=== PATIENT | male | born 1945 | race Caucasian/White ===

== ENCOUNTER 2016-06-10 15:21 | Outpatient (CLI) | payer MEDICARE, OTHER ==
[2016-06-10 16:00] LABS: BASOPHILS % 0.3 (0.0-1.5); EOSINOPHILS % 4.3 % (0.0-6.8); LYMPHOCYTES # 0.9 # k/uL (0.6-4.0); MEAN CORPUSCULAR HEMOGLOBIN 31.8 pg (28.0-34.0); MONOCYTES # 0.5 # k/uL (0.0-0.9); MONOCYTES % 7.9 % (0.0-11.0); NEUTROPHILS # 4.8 # k/uL (1.4-7.7)
[2016-06-10 16:20] LABS: eGFR (African) > 60; eGFR (Non-African) > 60
== END 2016-06-10 15:22 ==
LOC: LAB 15:21
PROVIDERS: ATTEND Family Medicine
DX: Z51.81 Encounter for therapeutic drug level monitoring (principal); E03.9 Hypothyroidism, unspecified; Z79.899 Other long term (current) drug therapy
CPT/HCPCS: 36415; 80053; 84443; 85025

== ENCOUNTER 2016-06-20 19:11 | Inpatient (IN) | payer MEDICARE, OTHER ==
[2016-06-20] MEDS ORDERED: IPRATROPIUM/ALBUTEROL SULFATE 3 ML AMPUL.NEB NEB ONE (19:40)
[2016-06-20] MEDS ORDERED: 0.9 % SODIUM CHLORIDE 1,000 ML IV ONE ×2 (19:54→22:09)
[2016-06-20] MEDS ORDERED: BUDESONIDE 0.5MG/2ML AMPUL.NEB NEB ONE (19:54)
[2016-06-20] MEDS ORDERED: 0.9 % SODIUM CHLORIDE 1,000 ML IV SCH (20:00)
[2016-06-20] MEDS: BUDESONIDE 0.5MG/2ML AMPUL.NEB NEB SCH (20:00)
[2016-06-20 20:15] LABS: MEAN CORPUSCULAR HEMOGLOBIN 31.3 pg (28.0-34.0)
[2016-06-20 20:26] LABS: eGFR (African) > 60; eGFR (Non-African) > 60
[2016-06-20] MEDS ORDERED: cefTRIAXone SODIUM ADVANTAGE 1 GM in NORMAL SALINE ADD-VANTAGE 50 ML IV ONE (21:12)
[2016-06-20] MEDS ORDERED: cefTRIAXone SODIUM 1 GM VIAL ONE (22:02)
[2016-06-20] MEDS ORDERED: 0.9 % SODIUM CHLORIDE 50 ML IV ONE (22:03)
[2016-06-20] MEDS: 0.9 % SODIUM CHLORIDE 1,000 ML IV SCH (22:15)
[2016-06-20] MEDS ORDERED: 0.9 % SODIUM CHLORIDE 250 ML IV SCH (23:37)
--- NOTE | 2016-06-21 00:03 | ED Physician Documentation ---
Upper Respiratory Symptoms - HISTORIAN Historian: patient - HPI Stated Complaint: cough, cogestion Chief Complaint: Cough/ Upper Respiratory Additional Information: turned yellow sputum today Onset: days ago (7) Duration: sudden-Onset Context: denies: recent foreign travel, insect bite(s), tick(s), recent chemotherapy, multiple patients Severity: moderate Associated Symptoms: fever, productive cough Worsened by Deep Breath: No Further Comments: no - ROS CONST/EYES: denies: weakness, eye redness, eye itching CVS/RESP: other (productive cough) LYMPH: denies: leg swelling, rash, swollen glands, ankle swelling GI/: other (dysphagia secondary to radition tx) NEURO/PSYCH: denies: fainting, dizziness, confusion, anxiety, depression MS/SKIN: denies: joint pain, muscle aches, rash - PAST HX Lung Disease: none PE Risk Factors: cancer Other History: cancer chemo, cancer radiation tx, other (hypothyroidism, hyperlipidemia, ortho issues) Surgeries/Procedures: other (ortho) Immunizations: referred to PCP Allergies/Adverse Reactions: Allergies Allergy/AdvReac Type Severity Reaction Status Date / Time iodine Allergy Verified 06/20/16 19:30 Home Medications: Ambulatory Orders Medication Instructions Recorded Cefuroxime Axetil [Cefuroxime] 250 mg PO BID 06/20/16 Glycopyrrolate [Robinul] 1 mg PO BID 06/20/16 Metoclopramide HCl 5 mg PO D 06/20/16 Omeprazole [Prilosec] 40 mg PO D 06/20/16 - SOCIAL HX Smoking History: non-smoker Alcohol Use: none Drug Use: none - FAMILY HX Family History: no significant history - VITAL SIGNS Vital Signs: Vital Signs Temp Pulse Resp BP Pulse Ox 98.7 F 89 20 88/58 93 06/20/16 19:12 06/20/16 23:15 06/20/16 23:15 06/20/16 23:15 06/20/16 23:15 - REVIEWED ASSESSMENTS Nursing Assessment Reviewed: Yes Vitals Reviewed: Yes Progress - Results/Orders Results/Orders: cxr, blood cultures, ua, pt, ptt, inr, cmp, cbc ordered - Progress Progress: pt. given 1250 NS bolus and 100 cc/hr, 1 gram Rocephin ivpb, Duoneb and Pulmicort 0.5 mg nebulizer treatments, O2 at 2 liters nc in er Critical Care Note - Critical Care Note Total Time (mins): 0 ED Results Lab/Radiology - Lab Results Lab Results: Lab Results 06/20/16 06/20/16 06/20/16 20:02 20:02 20:02 WBC 14.80 K/ul H K/ul (4.00-12.00) RBC 4.46 M/ul M/ul (3.90-5.20) Hgb 14.0 g/dL g/dL (12.0-18.0) Hct 41.3 % % (37.0-53.0) MCV 92.5 fl fl (80.0-100.0) MCH 31.3 pg pg (28.0-34.0) MCHC 33.9 g/dL g/dL (30.0-36.0) RDW 13.4 % % (11.3-14.3) Plt Count 283 K/mm3 K/mm3 (130-400) PT 11.1 Seconds Seconds (9.7-11.5) INR 1.1 (0.9-1.1) APTT 23.6 Seconds L Seconds (24.5-32.8) Sodium 135 mmol/L L mmol/L (136-145) Potassium 3.9 mmol/L mmol/L (3.5-5.0) Chloride 92 mmol/L L mmol/L (98-110) Carbon Dioxide 37 mmol/L H mmol/L (20-32) BUN 19 mg/dL mg/dL (10-26) Creatinine 1.0 mg/dL mg/dL (0.4-1.5) Estimated Creat Clear 75 Est GFR ( Amer) > 60 (60 - ) Est GFR (Non-Af Amer) > 60 (60 - ) Glucose 117 mg/dL H mg/dL (70-99) Calcium 9.7 mg/dL mg/dL (8.5-10.5) Total Bilirubin 0.2 mg/dL mg/dL (0.2-1.2) AST 22 U/L U/L (0-41) ALT 25 U/L U/L (0-45) Alkaline Phosphatase 80 U/L U/L (46-116) Total Protein 7.2 g/dL g/dL (6.0-8.5) Albumin 4.4 g/dL g/dL (3.0-5.5) - Radiology Radiology Impressions: cxr shows blunting of left costophrenic angle - Orders Orders: ED Orders Category Date Time Status Place Saline Lock/IV Now Care 06/20/16 19:40 Active CHEST 1 VIEW [RAD] Routine Exams 06/20/16 Taken BLOOD CULTURE Routine Lab 06/20/16 21:12 Received CBC/PLATELET/DIFF Routine Lab 06/20/16 20:02 Completed CMP Routine Lab 06/20/16 20:02 Completed PT-INR Routine Lab 06/20/16 20:02 Completed PTT Routine Lab 06/20/16 20:02 Completed URINALYSIS Routine Lab 06/20/16 Ordered 0.9 % Sodium Chloride [Normal Saline] 1,000 ml Med 06/20/16 20:00 Discontinued IV .Q1H 0.9 % Sodium Chloride [Sodium Chloride] 50 ml Med 06/20/16 22:03 Discontinued IV .STK-MED Budesonide [Pulmicort] Med 06/20/16 21:00 Ordered 0.5 mg NEB BID Ipratropium/Albuterol Sulfate [Duoneb] Med 06/20/16 19:40 Discontinued 3 ml NEB NOW ONE cefTRIAXone SODIUM ADVANTAGE [Rocephin Advantage] 1 gm Med 06/20/16 21:12 Discontinued Normal Saline Add-[place] [Sodium Chloride] 50 ml IV NOW cefTRIAXone SODIUM [Rocephin] Med 06/20/16 22:02 Discontinued 1 gm .ROUTE .STK-MED ONE Oxygen Daily Oxygen 06/20/16 19:45 Ordered Transfer Routine Transfer 06/20/16 Ordered Upper Respiratory Symptoms - EXAM General Appearance: alert, moderate distress EENT: eyes nml inspection, nml ENT inspection, lids & conjunct. nml, PERRL, ear nml, nose nml Neck: normal inspection, thyroid normal, supple Respiratory: no resp. distress, no pain on inspiration, speaks full sentences, wheezes (rxp), rales (insp. rales bilateral bases) Abdomen: non-tender, no organomegaly, nml bowel sounds, no distention CVS: reg rate & rhythm, heart sounds normal Skin: color nml, no rash, warm,dry Extremities: non-tender, normal range of motion, no evidence of injury, no edema Neuro/Psych: oriented x3, neuro intact, mood/affect nml Discharge Clincal Impression: Pneumonia Qualifiers: Pneumonia type: due to unspecified organism Laterality: left Lung location: lower lobe of lung Qualified Code(s): J18.9 - Pneumonia, unspecified organism Home Medications: Ambulatory Orders Cefuroxime Axetil [Cefuroxime] 250 mg PO BID 06/20/16 Glycopyrrolate [Robinul] 1 mg PO BID 06/20/16 Metoclopramide HCl 5 mg PO D 06/20/16 Omeprazole [Prilosec] 40 mg PO D 06/20/16 Comments: Case discussed with Dr. Olivo who accepts pt for admission. Condition: Stable Disposition: HOME, SELF-CARE Decision to Admit: NO Decision Time: 00:00
[2016-06-21 00:26] VITALS: BMI 24.0
--- NOTE | 2016-06-21 00:34 | Diagnostic Imaging Report ---
[facility] [address] [facility] [address] [place], [place]. [address] ~ ~ ~ ~ Report Submission Date: Jun 20, 2016 8:03:08 PM WELDING TEACHER Patient ~ Study Name: KAREN NARAYANAN ~ Date: Jun 20, 2016 7:51:49 PM WELDING TEACHER ~ Modality Type: CR Gender: M ~ Description: CHEST : 45 ~ Institution: [facility] Physician: BESSIE LESLIE ~ ~ ~ ~ Chest AP portable at 1951 hours of June 20, 2016 . Clinical history: Cough and dyspnea Normal heart shadow. Atherosclerotic thoracic aorta. Clear lungs without definite evidence of acute infiltrates or pleural effusion. Normal bony thorax Impression: No active pulmonary pathology ~ Electronically signed on Jun 20, 2016 8:03:08 PM WELDING TEACHER by: Enio JEREZ
[2016-06-21 05:49] LABS: COLOR,URINE YELLOW (YELLOW)
[2016-06-21 05:50] LABS: APPEARANCE,URINE CLEAR (CLEAR); OCCULT BLOOD,URINE TRACE-INTACT (NEGATIVE); PH URINE 7.5 (5.0 - 8.0); UROBILINOGEN URINE 0.2 Eu (0.2-1.0)
[2016-06-21] MEDS ORDERED: 0.9 % SODIUM CHLORIDE 1,000 ML IV ONE (06:33)
[2016-06-21] MEDS: 0.9 % SODIUM CHLORIDE 1,000 ML IV SCH (06:36)
[2016-06-21] MEDS ORDERED: LEVOTHYROXINE SODIUM 100 MCG TABLET PO SCH ×2 (07:00→09:26)
[2016-06-21] MEDS ORDERED: LEVOTHYROXINE SODIUM 25 MCG TABLET PO SCH (07:00)
--- NOTE | 2016-06-21 08:13 | History and Physical Report ---
History of Present Illnes - History of Present Illness Reason for Visit: cough, hypoxia History of Present Illness: Patient is a 70-year-old white male who has a history of problems with right tonsilar fossa carcinoma. patient has been treated with chemotherapy. Patient does have swallowing difficulties related to the carcinoma. Patient has recurrent aspiration issues. Last episode of aspiration pneumonia was 10 months ago. Patient was placed on antibiotic therapy for bronchitis/pneumonia approximately 10 days ago. Patient did initially have some improvement but then started having increased cough with sputum production of some green to yellow phlegm. Patient denies any hemoptysis. On the day of admission patient' s cough became much worse, patient started having some wheezing and increasing dyspnea and shortness of breath. Patient's SaO2 dropped into the 80s. Patient was febrile with fever in the low 100s. Patient was subsequently seen in the emergency room. Patient was felt to be developing a pnuemonia and was admitted. . It was felt that the patient did have aa early infiltrate on CXR dispite radiology reading it as clear. - Past Medical History Cardiac: Hyperlipidemia, Other (peripheral vascular disease) Pulmonary: Other (recurrent aspiration) Heme/Onc: Other (right tonsilar carcinoma) Psych: Depression Musculoskeletal: Other (cervical foraminal stenosis) Endocrine: Hypothyroidism - Past Surgical History Past Surgical History: Hernia Repair, Other (radiation and chemotherapy for cancer, PEG placement) - Past Family History Father Family History: (cancer) Sister 1 Family History: CAD, DM - Past Social History Smoke: Quit Alcohol: None Drugs: None Lives: With Family Domestic Violence: Negative - Health Maintenance Health Maintenance: Cholesterol, Pneumococcal Vaccine Pneumonia Vaccine: Yes Resuscitation Status: Resusciation Status Resuscitation Status Full Code - Unable to Obtain History Unable to Obtain: Yes Review of Systems - Review of Systems Constitutional: Fever, Chills. negative: Sweats, Weakness Eyes: negative: pain, vision change ENT: Throat Pain. negative: Ear Pain, Ear Discharge, Nose Pain, Nose Discharge , Nose Congestion, Mouth Pain, Mouth Swelling Respiratory: Cough, Shortness of Breath, SOB with Excertion, Pleuritic Pain, Wheezing. negative: Hemoptysis Cardiovascular: Chest Pain. negative: Palpitations, Orthopnea, Paroxysmal Noc. Dyspnea, Light Headedness Gastrointestinal: negative: Nausea, Vomiting, Abdominal Pain, Diarrhea, Constipation, Melena, Hematochezia Genitourinary: negative: Dysuria, Frequency, Incontinence, Hematuria Musculoskeletal: Neck Pain Skin: negative: Rash, Lesions Neurological: negative: Weakness, Numbness, Incoordination, Change in Speech - Medications/Allergies Allergies/Adverse Reactions: Allergies Allergy/AdvReac Type Severity Reaction Status Date / Time iodine Allergy Verified 06/20/16 19:30 Home Medications: Home Medications Glycopyrrolate [Robinul] 1 mg PO BID 06/20/16 Metoclopramide HCl 5 mg PO D 06/20/16 Omeprazole [Prilosec] 40 mg PO D 06/20/16 Current Inpatient Medications: Current Inpatient Medications Budesonide (Pulmicort) 0.5 mg NEB BID [facility] Last Admin: 06/20/16 20:00 Dose: 0.5 mg Sodium Chloride (Normal Saline) 250 mls @ 1,000 mls/hr IV .Q1H [facility] Last Admin: 06/20/16 22:00 Dose: 1,000 mls/hr Sodium Chloride (Normal Saline) 1,000 mls @ 100 mls/hr IV .Q1H [facility] Last Admin: 06/21/16 06:36 Dose: 100 mls/hr Exam - Exam Vital Signs: Vital Signs (72 hours) 06/20/16 06/20/16 06/21/16 23:15 23:16 02:00 Temperature 100.5 F H Pulse Rate 84 Pulse Rate [ 89 92 H Pulse ox] Respiratory 20 20 Rate Blood Pressure 88/58 113/70 [Left Arm] O2 Sat by Pulse 93 91 L Oximetry 06/21/16 06/21/16 06/21/16 02:58 04:00 05:20 Temperature 99.1 F Pulse Rate 84 84 Pulse Rate [ Pulse ox] Respiratory 18 Rate Blood Pressure 109/68 [Left Arm] O2 Sat by Pulse 94 Oximetry 06/21/16 06:13 Temperature 99.6 F Pulse Rate Pulse Rate [ 86 Pulse ox] Respiratory 20 Rate Blood Pressure 113/61 [Left Arm] O2 Sat by Pulse 93 Oximetry General: Alert, Oriented to Person, Oriented to Place, Oriented to Time, Cooperative, Mild distress HEENT: Atraumatic, PERRLA, EOMI, Mouth Mucous membr. moist/Faxon, Nose Mucous membr. moist/Faxon, Dentition Normal, Hearing Grossly Normal Neck: Normal Range of Motion, Other Carotids: WNL Thyroid: WNL Lungs: Normal air movement, Speaks full Sentences, Wheezes, Rales (LLL), Rhonchi (LLL) Cardiovascular: Regular rate, Normal S1, Normal S2, No murmurs Abdomen: Normal bowel sounds, Soft, No tenderness, No hepatospenomegaly, No masses Integumentary: Normal, Faxon, Warm, Dry Extremities: No clubbing, No cyanosis, No edema, Normal pulses, No tenderness/ swelling Neurological: Normal gait, Normal speech, Strength Equal Bilat, Normal tone, Sensation intact, Cranial nerves 3-12 NL, Reflexes 2+ Psych/Mental Status: Mental status NL, Mood NL, Appropriate Affect, Intact Judgment Assessment/Plan - Assessment/Plan (1) Pneumonia Status: Acute Qualifiers: Pneumonia type: due to unspecified organism Laterality: left Lung location: lower lobe of lung Qualified Code(s): J18.1 - Lobar pneumonia, unspecified organism Assessment: patient will be started on Rocephin and azithromycin. Patient will be started on high flow nebulization treatments. Support with oxygen therapy as needed. (2) Hypothyroid Status: Acute Assessment: patient will be continued on home medications (3) PUD (peptic ulcer disease) Status: Acute Assessment: patient will be continued on home medication (4) Primary cancer of lingual tonsil Status: Chronic Assessment: stable VTE Assessment - RISK FACTOR SCORE VTE RISK FACTOR SCORES: AGE OVER 60 YEARS, ACUTE INFECTION OTHER THEN SEPSIS, ANTICIPATED BED CONFINEMENT OR IMMOBILIZATION > 24 HOURS - RISK VTE HIGH RISK: SCORE OF 3-4 (RISK PROXIMAL DVT 4-8%) PROPHYLAXIS NEEDED
[2016-06-21] MEDS ORDERED: LEVOTHYROXINE SODIUM 25 MCG TABLET PEG SCH (09:22)
[2016-06-21] MEDS ORDERED: ENOXAPARIN SODIUM 30 MG/0.3 ML DISP.SYRIN SQ ONE (09:59)
[2016-06-21] MEDS ORDERED: METOCLOPRAMIDE HCL 5 MG TABLET PEG SCH (10:00)
[2016-06-21] MEDS ORDERED: BUDESONIDE 0.5MG/2ML AMPUL.NEB NEB ONE ×2 (10:00→20:13)
[2016-06-21] MEDS ORDERED: AZITHROMYCIN 500 MG VIAL IV ONE (10:00)
[2016-06-21] MEDS ORDERED: 0.9 % SODIUM CHLORIDE 250 ML IV ONE (10:00)
[2016-06-21] MEDS ORDERED: 0.9 % SODIUM CHLORIDE 50 ML IV ONE (10:00)
[2016-06-21] MEDS ORDERED: cefTRIAXone SODIUM 1 GM VIAL ONE (10:00)
[2016-06-21] MEDS ORDERED: METOCLOPRAMIDE HCL 5 MG TABLET PO SCH ×2 (10:00)
[2016-06-21] MEDS: ENOXAPARIN SODIUM 30 MG/0.3 ML DISP.SYRIN SQ SCH (10:03)
[2016-06-21] MEDS: BUDESONIDE 0.5MG/2ML AMPUL.NEB NEB SCH ×2 (10:23→20:37)
[2016-06-21] MEDS: cefTRIAXone SODIUM 1 GM in 0.9 % SODIUM CHLORIDE 50 ML IV SCH (10:24)
[2016-06-21] MEDS: AZITHROMYCIN 500 MG in 0.9 % SODIUM CHLORIDE 250 ML IV SCH (10:30)
[2016-06-21] MEDS ORDERED: SALINE FLUSH 10 ML DISP.SYRIN IVF ONE (11:03)
[2016-06-21] MEDS: PATIENT OWN MED 1 EACH EACH PEG SCH ×3 (13:52→20:14)
[2016-06-21] MEDS ORDERED: PATIENT OWN MED 1 EACH EACH PEG SCH ×2 (17:08→17:30)
[2016-06-21] MEDS ORDERED: METOCLOPRAMIDE HCL 5 MG TABLET ONE (17:18)
[2016-06-22] MEDS ORDERED: ENOXAPARIN SODIUM 30 MG/0.3 ML DISP.SYRIN SQ ONE (04:54)
[2016-06-22] MEDS ORDERED: cefTRIAXone SODIUM 1 GM VIAL ONE (04:55)
[2016-06-22] MEDS ORDERED: BUDESONIDE 0.5MG/2ML AMPUL.NEB NEB ONE (04:55)
[2016-06-22] MEDS ORDERED: 0.9 % SODIUM CHLORIDE 250 ML IV ONE (04:55)
[2016-06-22] MEDS ORDERED: AZITHROMYCIN 500 MG VIAL IV ONE (04:55)
[2016-06-22] MEDS ORDERED: LEVOTHYROXINE SODIUM 25 MCG TABLET ONE (04:55)
[2016-06-22] MEDS ORDERED: SALINE FLUSH 10 ML DISP.SYRIN IVF ONE (04:55)
[2016-06-22] MEDS ORDERED: METOCLOPRAMIDE HCL 5 MG TABLET ONE (04:55)
[2016-06-22] MEDS ORDERED: PANTOPRAZOLE SODIUM 40 MG TABLET ONE (04:56)
[2016-06-22] MEDS ORDERED: 0.9 % SODIUM CHLORIDE 0 ML IV ONE (04:56)
[2016-06-22] MEDS ORDERED: LEVOTHYROXINE SODIUM 100 MCG TABLET PO ONE (04:56)
[2016-06-22] MEDS ORDERED: METOCLOPRAMIDE HCL 5 MG TABLET PEG SCH ×3 (07:00→17:00)
[2016-06-22] MEDS ORDERED: PANTOPRAZOLE SODIUM 40 MG TABLET PEG SCH (07:00)
[2016-06-22] MEDS ORDERED: PANTOPRAZOLE SODIUM 40 MG TABLET PO SCH (07:00)
[2016-06-22] MEDS ORDERED: PATIENT OWN MED 1 EACH EACH PEG SCH ×3 (07:00→14:00)
[2016-06-22] MEDS: BUDESONIDE 0.5MG/2ML AMPUL.NEB NEB SCH (09:00)
[2016-06-22] MEDS: PATIENT OWN MED 1 EACH EACH PEG SCH (09:01)
[2016-06-22] MEDS: ENOXAPARIN SODIUM 30 MG/0.3 ML DISP.SYRIN SQ SCH (09:01)
[2016-06-22] MEDS ORDERED: 0.9 % SODIUM CHLORIDE 50 ML IV ONE (09:24)
[2016-06-22] MEDS: cefTRIAXone SODIUM 1 GM in 0.9 % SODIUM CHLORIDE 50 ML IV SCH (09:30)
[2016-06-22] MEDS: AZITHROMYCIN 500 MG in 0.9 % SODIUM CHLORIDE 250 ML IV SCH (10:30)
[2016-06-22 10:31] LABS: BASOPHILS % 0.1 (0.0-1.5); LYMPHOCYTES # 0.6 # k/uL (0.6-4.0); MEAN CORPUSCULAR HEMOGLOBIN 30.8 pg (28.0-34.0); MONOCYTES # 0.3 # k/uL (0.0-0.9); MONOCYTES % 4.7 % (0.0-11.0); NEUTROPHILS # 5.8 # k/uL (1.4-7.7)
[2016-06-22 10:37] LABS: eGFR (African) > 60; eGFR (Non-African) > 60
--- NOTE | 2016-06-22 14:38 | Discharge Summary ---
Discharge Summary - Discharge Sumary History of Present Illness: Patient is a 70-year-old white male who has a history of problems with right tonsilar fossa carcinoma. patient has been treated with chemotherapy. Patient does have swallowing difficulties related to the carcinoma. Patient has recurrent aspiration issues. Last episode of aspiration pneumonia was 10 months ago. Patient was placed on antibiotic therapy for bronchitis/pneumonia approximately 10 days ago. Patient did initially have some improvement but then started having increased cough with sputum production of some green to yellow phlegm. Patient denies any hemoptysis. On the day of admission patient' s cough became much worse, patient started having some wheezing and increasing dyspnea and shortness of breath. Patient's SaO2 dropped into the 80s. Patient was febrile with fever in the low 100s. Patient was subsequently seen in the emergency room. Patient was felt to be developing a pnuemonia and was admitted. . It was felt that the patient did have aa early infiltrate on CXR dispite radiology reading it as clear. Condition at Discharge: Stable Home Medications: Ambulatory Orders Medication Instructions Recorded Glycopyrrolate [Robinul] 1 mg PO BID 06/20/16 Metoclopramide HCl 5 mg PO D 06/20/16 Omeprazole [Prilosec] 40 mg PO D 06/20/16 Albuterol Sulfate [Proair HFA] 2 inh IH Q4 PRN #1 hfa.aer.ad 06/22/16 Azithromycin [Zithromax] 250 mg PO DAILY #4 tablet 06/22/16 Levofloxacin [Levaquin] 500 mg PO D #8 tablet 06/22/16 Consultations this Visit: None Procedures this Visit: None Allergies/Adverse Reactions: Allergies Allergy/AdvReac Type Severity Reaction Status Date / Time iodine Allergy Verified 06/20/16 19:30 Discharge Summary: patient was admitted with pneumonia. Patient was started on IV antibiotic therapy of Rocephin and azithromycin. Patient did well. Patient was started on high flow nebulization treatments and supplemental oxygen. By the next day. Patient was breathing much easier. Patient was requested to be transferred back to care home. Patient was advised to stay for further IV antibiotic therapy. Patient refused and was transferred back to [place]. - Final Diagnosis (1) Pneumonia Problems: improved with current Therapy Nebulization Treatment. Patient Will Be Continued on Antibiotic Therapy after Discharge. Patient Will Be Continued with High Flow Nebulization Treatment at the Care Home. (2) Hypothyroid Problems: stable on on home meds (3) PUD (peptic ulcer disease) Problems: stable (4) Primary cancer of lingual tonsil Problems: stable, treated
[2016-06-22 15:25] VITALS: BP 138/51
--- NOTE | 2016-06-22 17:00 | Diagnostic Imaging Report ---
[facility] [address] [facility].[address] [address] ~ ~ ~ ~ Report Submission Date: Jun 22, 2016 1:44:58 PM ASSOCIATE PROFESSOR OF KINESIOLOGY Patient ~ Study Name: KAREN NARAYANAN ~ Date: Jun 22, 2016 1:06:36 PM ASSOCIATE PROFESSOR OF KINESIOLOGY ~ Modality Type: CR Gender: M ~ Description: CHEST : 45 ~ Institution: [facility] Physician: HARISH MURRAY MD ~ ~ ~ ~ Chest 2 views History: Dyspnea and history of laryngeal carcinoma Findings: Mild bibasilar reticular opacity and a small right upper lobe reticulonodular opacity are observed. There is no confluent air space infiltrate or pleural effusion. Heart size is normal. Right upper lobe lesion has developed since the exam performed 2 days ago. Basilar findings are unchanged. Impression: 1. Mild bibasilar interstitial infiltrate versus bronchitis without change. 2. New right upper lobe reticulonodular opacity, likely inflammatory. Recommend radiographic followup. ~ Electronically signed on Jun 22, 2016 1:44:58 PM ASSOCIATE PROFESSOR OF KINESIOLOGY by: Qamar JEREZ
== END 2016-06-22 16:32 | disposition home or self-care (01) | DRG 195 ==
LOC: ED 19:11 → SOUTH 22:56
PROVIDERS: ADMIT Family Medicine; ATTEND Family Medicine
DX: J18.9 Pneumonia, unspecified organism (principal)
CPT/HCPCS: 71010; 71020; 80048; 80053; 81002; 85025; 85610; 85730; 87040; 87070; 94640; 99284; J0456; J0696; J1650; J7030; J7050; J7626; 99222; 99232; 99238; S1016

== ENCOUNTER 2016-10-14 11:57 | Outpatient (CLI) | payer MEDICARE, OTHER ==
[2016-10-14 12:48] LABS: BASOPHILS % 0.2 (0.0-1.5); EOSINOPHILS % 0.8 % (0.0-6.8); MEAN CORPUSCULAR HEMOGLOBIN 31.7 pg (28.0-34.0); MEAN CORPUSCULAR VOLUME 93.4 fl (80.0-100.0); MONOCYTES % 4.9 % (0.0-11.0); NEUTROPHILS # 5.9 # k/uL (1.4-7.7)
[2016-10-14 13:13] LABS: eGFR (African) > 60; eGFR (Non-African) > 60
--- NOTE | 2016-10-14 15:23 | Diagnostic Imaging Report ---
[facility] [place] [facility] [address] [facility].[address] [address] Report Submission Date: October 14, 2016 12:31:45 PM CDT Patient Study Name: KAREN NARAYANAN Date: October 14, 2016 12:10:06 PM CDT Modality Type: CT\SR Gender: M Description: CT BRAIN W/O CONTRAST : 45 Institution: [facility] [place] [facility] Physician ASA MOMO - OP Head CT without contrast CLINICAL HISTORY: Fall. Right frontal contusion. Right upper extremity hemiparesis. TECHNIQUE: CT examination of the brain is performed in contiguous axial slices without the use of contrast. Sagittal and coronal reconstructions are performed by the technologist. FINDINGS: The 4th ventricle lies in a normal midline position. The ventricles and sulci are mildly prominent consistent with the patient's age. There is no hypodense or hyperdense mass or intracranial hemorrhage. Intracranial atherosclerosis is demonstrated. Right frontal scalp hematoma is demonstrated. Underlying bony structures are intact. IMPRESSION: Right frontal scalp injury. Intracranial atherosclerosis. No acute intracranial changes. Electronically signed on October 14, 2016 12:31:45 PM CDT by: Tab JEREZ
--- NOTE | 2016-10-14 15:36 | Diagnostic Imaging Report ---
MOMO BRAY [facility] [place] [facility] [address] [facility] [address] [place], [place]. [address] Report Submission Date: October 14, 2016 3:29:22 PM CDT Patient Study Name: KAREN NARAYANAN Date: October 14, 2016 12:24:06 PM CDT Modality Type: CR Gender: M Description: CHEST : 45 Institution: [facility] [place] [facility] Physician: MOMO BRAY 2 views of the chest History: FALL YESTERDAY. COUGH AND DYSPNEA ON EXERTION Findings: Comparison: June 22, 2016 The heart is normal in size. Aorta is tortuous Prominent pulmonary winter. Apical pleural thickening. Again noted are opacities in the bilateral lower lobes, most prominent on the left. No pleural effusion/ pneumothorax Previously described right upper lobe nodular opacity not as prominent on the current study Degenerative changes of thoracic spine Impression: Bilateral lower lobe interstitial infiltrates and/or atelectasis, worse on the left. Chronic basilar predominant interstitial lung changes No pleural effusion. Prominent pulmonary hilum, may be secondary to pulmonary congestion / lymphadenopathy Previously described right upper lobe reticular opacity not as prominently seen on the current examination. Biapical pleural thickening Electronically signed on October 14, 2016 3:29:22 PM CDT by: Keena JEREZ
== END 2016-10-14 12:00 ==
LOC: RT 11:57
PROVIDERS: ATTEND Family Medicine
DX: G81.91 Hemiplegia, unspecified affecting right dominant side (principal); S00.83XA Contusion of other part of head, initial encounter; R06.09 Other forms of dyspnea; R55 Syncope and collapse
CPT/HCPCS: 36415; 70450; 71020; 80053; 85025; 93225

== ENCOUNTER 2016-10-21 08:45 | Outpatient (CLI) | payer MEDICARE, OTHER ==
--- NOTE | 2016-10-21 16:29 | Diagnostic Imaging Report ---
[facility] [address] [facility].[address] [address] Report Submission Date: October 21, 2016 4:20:04 PM CDT Patient Study Name: KAREN NARAYANAN Date: October 21, 2016 8:57:20 AM CDT Modality Type: CR Gender: M Description: CHEST : 45 Institution: [facility] Physician: ASA MOMO - OP Chest 2 views History: Cough and wheezing Findings: Mild left midlung and bibasilar reticular opacity is unchanged since June 22, 2016. Heart size is normal. No pleural effusions are observed. Lungs are mildly hyperinflated. Nipple shadows are noted. Impression: Stable left midlung and bibasilar interstitial infiltrate versus bronchitis with mild hyperinflation. Electronically signed on October 21, 2016 4:20:04 PM CDT by: Qamar JEREZ
== END 2016-10-21 08:46 ==
LOC: RAD 08:45
PROVIDERS: ATTEND Family Medicine
DX: R06.02 Shortness of breath (principal)
CPT/HCPCS: 71020

== ENCOUNTER 2016-12-13 09:14 | Outpatient (CLI) | payer MEDICARE, OTHER | END 2016-12-13 09:15 | LOC: LAB 09:14 | PROVIDERS: ATTEND Family Medicine | DX: E78.00 Pure hypercholesterolemia, unspecified (principal) | CPT/HCPCS: 36415; 80061 ==

== ENCOUNTER 2017-02-13 14:45 | Outpatient (CLI) | payer MEDICARE, OTHER | END 2017-02-13 14:46 | LOC: LAB 14:45 | PROVIDERS: ATTEND Family Medicine | DX: E78.00 Pure hypercholesterolemia, unspecified (principal) | CPT/HCPCS: 80061 ==

== ENCOUNTER 2017-05-21 12:55 | Inpatient (IN) | payer MEDICARE, OTHER ==
[2017-05-21 15:31] VITALS: BMI 20.9
--- NOTE | 2017-05-21 16:11 | History and Physical Report ---
History of Present Illnes - History of Present Illness Reason for Visit: GAit disturbance, dressing changes History of Present Illness: 71yo white male who was admitted to [facility] for sepsis with shock After he developed some severe abdominal pain. 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 Two days after his primary surgery patient underwent another abdominal laparotomy for partial closure of his abdominal wound/incision. Patient was also found to have some hypernatremia, hypokalemia and hypercloremia. Patient was also found to have a pneumonia. This was felt to be related to recurrent aspiration problems that the patient has. Patient sputum culture did grow out pseudomonas. Patient was initially placed on vancomycin and then subsequently on Levaquin.Patient was treated with vancomycin. Patient has two more days to finish out his course of antibiotic therapy. Patient was found to have a DVT in the femoral vein, with no PE. Patient was found to have a patent foramen ovale. There is some question if the patient had a emboli that travel through the defect and cause the ischemic mesenteric bowel through embolization. IVC filter placed. Patient has been placed on anticoagulation therapy of Lovenox. Patient denies it is had any previous DVTs. Patient stated he does seem to be doing fairly well at this time. Patient believes that is breathing has return back to normal. Patient does have a well-functioning ileostomy. Patient pain related to his abdominal surgery does seem to be improving at this time. 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 Patient does have a PEG tube in place and get all this medications and nutritional and hydration through it. - Past Medical History Cardiac: Hyperlipidemia, Other (peripheral vascular disease) Pulmonary: Other (recurrent aspiration, Right femoral DVT) Heme/Onc: Other (right tonsilar carcinoma) Psych: Depression Musculoskeletal: Other (cervical foraminal stenosis) Endocrine: Hypothyroidism - Past Surgical History Past Surgical History: Hernia Repair, Other (partial colectomy), Other ( radiation and chemotherapy for cancer, PEG placement) - Past Family History Mother Family History: Father Family History: Cancer (brain tumor), (cancer) Sister 1 Family History: CAD, DM - Past Social History Smoke: Quit (use to chew tobacco) Alcohol: None Drugs: None Lives: With Family Domestic Violence: Negative - Health Maintenance Health Maintenance: Cholesterol, Pneumococcal Vaccine (13 & 23) Influenza Vaccine: Current for this Influenza Season Pneumonia Vaccine: Yes Resuscitation Status: DNR - Unable to Obtain History Unable to Obtain: No Review of Systems - Review of Systems Constitutional: Weakness. negative: Fever, Chills Eyes: negative: pain ENT: negative: Ear Pain, Ear Discharge, Nose Pain, Nose Discharge, Nose Congestion, Mouth Pain Respiratory: Cough, Shortness of Breath, Sputum, Wheezing. negative: Hemoptysis , Pleuritic Pain Cardiovascular: negative: Chest Pain, Palpitations, Orthopnea, Light Headedness Gastrointestinal: Abdominal Pain. negative: Nausea, Vomiting, Diarrhea, Constipation, Melena, Hematochezia Genitourinary: negative: Dysuria, Frequency Musculoskeletal: Back Pain Skin: negative: Rash Neurological: Weakness. negative: Numbness, Incoordination, Change in Speech - Medications/Allergies Allergies/Adverse Reactions: Allergies Allergy/AdvReac Type Severity Reaction Status Date / Time iodine Allergy Verified 06/20/16 19:30 Exam - Exam Vital Signs: Vital Signs (72 hours) 05/21/17 14:05 Temperature 98.6 F Respiratory 18 Rate Blood Pressure 138/51 [Left Arm] O2 Sat by Pulse 92 Oximetry General: Alert, Oriented to Person, Oriented to Place, Oriented to Time, Cooperative, Other HEENT: Atraumatic, PERRLA, Dentition Normal, Hearing Grossly Normal. No: Mouth Mucous membr. moist/[place] (dry) Neck: No: Stridor, Lymphadenopathy Carotids: WNL Thyroid: WNL Lungs: Normal air movement, Speaks full Sentences, Rhonchi (throughout). No: Wheezes, Rales Cardiovascular: Regular rate, Normal S1, Normal S2, No murmurs Abdomen: Normal bowel sounds, Soft, No hepatospenomegaly, No masses. No: Distended Integumentary: Normal, [place], Warm, Dry, Other (incisional wound 13x2cm, appears to be healing well) Extremities: No clubbing, No cyanosis, No edema, Normal pulses Neurological: Normal gait, Normal speech, Strength Equal Bilat, Normal tone, Sensation intact, Cranial nerves 3-12 NL, Reflexes 2+, Generalized Weakness Psych/Mental Status: Mental status NL, Mood NL, Intact Judgment Assessment/Plan - Assessment/Plan (1) GERD without esophagitis Status: Chronic Current Visit: Yes (2) Ischemic bowel disease Status: Acute Current Visit: Yes Assessment: [place]o to possibly related to embolisim from DVT (3) DVT (deep venous thrombosis) Status: Acute Current Visit: Yes Qualifiers: DVT location: lower extremity Affected thrombotic vein of extremity: femoral Chronicity: acute Laterality: right Qualified Code(s): I82.411 - Acute embolism and thrombosis of right femoral vein Assessment: on Lovenox due to question about GI absorbtion of oral anticoagulants according to family (4) Patent foramen ovale Status: Chronic Current Visit: Yes (5) Hypothyroid Status: Chronic Current Visit: No Comment: continue home med (6) Recurrent aspiration pneumonia Status: Acute Current Visit: No Assessment: finish Levquin ( 2days) (7) Primary cancer of lingual tonsil Status: Chronic Current Visit: No Assessment: has undergone chemo and radiation therapy VTE Assessment - RISK FACTOR SCORE VTE RISK FACTOR SCORES: AGE OVER 60 YEARS, ANTICIPATED BED CONFINEMENT OR IMMOBILIZATION > 24 HOURS - RISK VTE MODERATE RISK: SCORE OF 2 (RISK PROXIMAL DVT 2-4%) PROPHYAXIS NEEDED (on anticoagluation theraoy related to DVT)
[2017-05-21] MEDS ORDERED: ACETAMINOPHEN ORAL SOLUTION 325 MG/10.15 ML CUP PEG PRN (17:59)
[2017-05-21] MEDS: FAMOTIDINE 20 MG TABLET PEG SCH (18:09)
[2017-05-21] MEDS: LEVOTHYROXINE SODIUM 25 MCG TABLET PO SCH (18:10)
[2017-05-21] MEDS: LEVOTHYROXINE SODIUM 100 MCG TABLET PO SCH (18:10)
--- NOTE | 2017-05-21 18:20 | Diagnostic Imaging Report ---
[facility] [address] [facility] [address] [address] Report Submission Date: May 21, 2017 6:19:04 PM AGRICULTURAL PURCHASING AGENT Patient Study Name: KAREN NARAYANAN Date: May 21, 2017 6:02:49 PM AGRICULTURAL PURCHASING AGENT Modality Type: CR Gender: M Description: CHEST : 45 Institution: [facility] Physician: [facility] SURG PA and lateral chest Clinical history: COUGH, F/U PNEUMONIA Findings: Examination of the chest in PA and lateral views with comparison to examination October 21, 2016 demonstrates bilateral infiltrates worse in the upper lung zones. Cardiovascular and mediastinal silhouettes are stable. There is left pleural thickening laterally. There is widening of the superior mediastinum suggesting adenopathy. Cardiac silhouette is stable. Impression: 1. Bilateral infiltrates. 2. Pleural thickening in the upper chest on the left laterally that is new. 3. Widening of mediastinum. Rule out mediastinal adenopathy. 4. Recommend followup to resolution to rule out the possibility of underlying malignancy. Electronically signed on May 21, 2017 6:19:04 PM AGRICULTURAL PURCHASING AGENT by: Tab JEREZ
[2017-05-21] MEDS ORDERED: ENOXAPARIN SODIUM 80 MG/0.8 ML DISP.SYRIN SQ ONE (20:02)
[2017-05-21] MEDS: ENOXAPARIN SODIUM 100 MG/ML DISP.SYRIN SQ SCH (20:06)
[2017-05-21] MEDS: ALBUTEROL SULFATE 2.5 MG/3 ML AMPUL.NEB NEB SCH (20:41)
[2017-05-21] MEDS ORDERED: SALINE FLUSH 10 ML DISP.SYRIN IVF ONE (20:52)
[2017-05-21] MEDS: ACETYLCYSTEINE 200MG/ML 30ML PO SCH (20:56)
[2017-05-21] MEDS: oxyCODONE HCL 5 MG TABLET PEG PRN (23:31)
[2017-05-22] MEDS ORDERED: ENOXAPARIN SODIUM 80 MG/0.8 ML DISP.SYRIN SQ ONE (05:49)
[2017-05-22] MEDS: LEVOTHYROXINE SODIUM 100 MCG TABLET PO SCH (06:19)
[2017-05-22] MEDS: FAMOTIDINE 20 MG TABLET PEG SCH (06:19)
[2017-05-22] MEDS: LEVOTHYROXINE SODIUM 25 MCG TABLET PO SCH (06:19)
[2017-05-22] MEDS: [UNRECOGNIZED DRUG - OTHER] PEG SCH ×10 (07:00→19:44)
[2017-05-22 07:14] LABS: BASOPHILS % 0.4 (0.0-1.5); EOSINOPHILS % 3.2 % (0.0-6.8); MEAN CORPUSCULAR HEMOGLOBIN 29.3 pg (28.0-34.0); MONOCYTES % 3.6 % (0.0-11.0); NEUTROPHILS # 12.6 # k/uL (1.4-7.7)
[2017-05-22 07:24] LABS: eGFR (African) > 60; eGFR (Non-African) > 60
[2017-05-22] MEDS ORDERED: LEVOFLOXACIN 500 MG TABLET PO SCH (09:00)
[2017-05-22] MEDS: ALBUTEROL SULFATE 2.5 MG/3 ML AMPUL.NEB NEB SCH ×4 (09:54→19:45)
[2017-05-22] MEDS: ENOXAPARIN SODIUM 100 MG/ML DISP.SYRIN SQ SCH ×2 (09:54→19:45)
[2017-05-22] MEDS: ACETYLCYSTEINE 200MG/ML 30ML PO SCH (09:54)
[2017-05-22] MEDS: WATER PEG SCH ×5 (11:00→19:45)
[2017-05-22] MEDS: ACETYLCYSTEINE 200MG/ML 30ML PEG SCH ×3 (12:55→19:45)
[2017-05-22] MEDS: Non-Formulary 1 EACH PEG SCH ×2 (15:25→15:26)
[2017-05-22] MEDS: PANTOPRAZOLE SODIUM 40 MG TABLET PO SCH (19:33)
[2017-05-22] MEDS: oxyCODONE HCL 5 MG TABLET PEG PRN (23:21)
[2017-05-23] MEDS ORDERED: LEVOFLOXACIN 500 MG TABLET ONE (00:06)
[2017-05-23] MEDS: LEVOTHYROXINE SODIUM 25 MCG TABLET PEG SCH (06:07)
[2017-05-23] MEDS: LEVOTHYROXINE SODIUM 100 MCG TABLET PEG SCH (06:07)
[2017-05-23] MEDS: FAMOTIDINE 20 MG TABLET PEG SCH (06:08)
[2017-05-23] MEDS: WATER PEG SCH ×7 (06:08→18:00)
[2017-05-23] MEDS: PANTOPRAZOLE SODIUM 40 MG TABLET PO SCH (06:08)
[2017-05-23] MEDS: [UNRECOGNIZED DRUG - OTHER] PEG SCH ×7 (06:08→18:00)
[2017-05-23 08:06] LABS: MEAN CORPUSCULAR VOLUME 89.7 fl (80.0-100.0)
[2017-05-23] MEDS: ACETYLCYSTEINE 200MG/ML 30ML PEG SCH ×4 (08:49→21:20)
[2017-05-23] MEDS: ENOXAPARIN SODIUM 100 MG/ML DISP.SYRIN SQ SCH ×2 (08:49→21:19)
[2017-05-23] MEDS ORDERED: LEVOFLOXACIN 500 MG TABLET PEG SCH (09:00)
[2017-05-23] MEDS: ALBUTEROL SULFATE 2.5 MG/3 ML AMPUL.NEB NEB SCH ×4 (09:02→23:13)
[2017-05-23] MEDS ORDERED: NYSTATIN POWDER BOTTLE TP PRN (15:54)
[2017-05-23] MEDS ORDERED: SODIUM CHLORIDE NASAL SPRAY NS PRN (16:48)
[2017-05-24] MEDS: LEVOTHYROXINE SODIUM 100 MCG TABLET PEG SCH (06:40)
[2017-05-24] MEDS: PANTOPRAZOLE SODIUM 40 MG TABLET PO SCH (06:40)
[2017-05-24] MEDS: FAMOTIDINE 20 MG TABLET PEG SCH (06:40)
[2017-05-24] MEDS: LEVOTHYROXINE SODIUM 25 MCG TABLET PEG SCH (06:41)
[2017-05-24] MEDS: [UNRECOGNIZED DRUG - OTHER] PEG SCH ×7 (06:41→17:59)
[2017-05-24] MEDS: WATER PEG SCH ×7 (06:42→18:00)
[2017-05-24] MEDS: ACETYLCYSTEINE 200MG/ML 30ML PEG SCH ×5 (08:26→20:08)
[2017-05-24] MEDS: ENOXAPARIN SODIUM 100 MG/ML DISP.SYRIN SQ SCH ×2 (08:28→20:00)
[2017-05-24] MEDS: ALBUTEROL SULFATE 2.5 MG/3 ML AMPUL.NEB NEB SCH ×4 (08:31→20:58)
[2017-05-24 10:47] LABS: MEAN CORPUSCULAR HEMOGLOBIN 29.3 pg (28.0-34.0); MEAN CORPUSCULAR VOLUME 89.2 fl (80.0-100.0)
[2017-05-24] MEDS ORDERED: ENOXAPARIN SODIUM 100 MG/ML DISP.SYRIN SQ ONE (19:59)
[2017-05-25] MEDS ORDERED: ENOXAPARIN SODIUM 80 MG/0.8 ML DISP.SYRIN SQ ONE ×2 (01:33→13:19)
[2017-05-25] MEDS: FAMOTIDINE 20 MG TABLET PEG SCH (05:49)
[2017-05-25] MEDS: PANTOPRAZOLE SODIUM 40 MG TABLET PO SCH (05:49)
[2017-05-25] MEDS: LEVOTHYROXINE SODIUM 100 MCG TABLET PEG SCH (05:49)
[2017-05-25] MEDS: LEVOTHYROXINE SODIUM 25 MCG TABLET PEG SCH (05:49)
[2017-05-25] MEDS: WATER PEG SCH ×8 (05:50→18:31)
[2017-05-25] MEDS: [UNRECOGNIZED DRUG - OTHER] PEG SCH ×8 (05:50→18:31)
[2017-05-25] MEDS: oxyCODONE HCL 5 MG TABLET PEG PRN (06:55)
[2017-05-25] MEDS: ENOXAPARIN SODIUM 100 MG/ML DISP.SYRIN SQ SCH ×2 (08:14→20:31)
[2017-05-25] MEDS: ALBUTEROL SULFATE 2.5 MG/3 ML AMPUL.NEB NEB SCH ×4 (08:45→20:30)
--- NOTE | 2017-05-25 09:13 | Inpatient Progress Note ---
Subjective - Required Recertification Statement I anticipate X number of days because-include discharge plan: 10 - Review of Systems Events since last encounter: Wiley looks better this morning. His hemoglobin was up yesterday. He is a little stronger. He is afebrile. He has no significant pain. His ostomy is working better. General: Malaise. Denies: Chills, Night Sweats HEENT: Denies: Head Aches, Visual Changes Pulmonary: Dyspnea, Cough Cardiovascular: Denies: Chest Pain Gastrointestinal: Denies: Nausea, Vomiting Genitourinary: Denies: Dysuria Musculoskeletal: Denies: Neck Pain, Shoulder Pain Neurological: Weakness. Denies: Change in Speech, Confusion Objective - Exam Vitals and I&O: Vital Signs Temp 98.3 F 05/24/17 19:32 Pulse 80 05/24/17 20:37 Resp 20 05/24/17 20:37 BP 102/58 05/24/17 19:32 Pulse Ox 97 05/24/17 19:32 Intake & Output 05/24/17 05/24/17 05/25/17 11:59 23:59 11:59 Intake Total 350 1525 150 Output Total 400 1003 750 Balance -50 522 -600 Intake: Oral 0 1525 Tube Feeding 350 150 Output: Urine 3 Stool 250 1000 750 Other 150 Other: Voiding Method Urinal Urinal General: Alert, Oriented to Person, Oriented to Place, Oriented to Time, Cooperative, Mild distress HEENT: Atraumatic, PERRLA, EOMI Neck: Supple, No JVD Lungs: Wheezes, Rhonchi Cardiovascular: Regular rate Abdomen: Normal bowel sounds, Soft, No tenderness (ostomy is functioning well.) Extremities: No clubbing, No cyanosis, No edema - Results Results: Laboratory Results WBC 7.80 K/ul (4.00-12.00) 05/24/17 10:25 RBC 3.03 M/ul (3.90-5.20) L 05/24/17 10:25 Hgb 8.9 g/dL (12.0-18.0) L 05/24/17 10:25 Hct 27.0 % (37.0-53.0) L 05/24/17 10:25 MCV 89.2 fl (80.0-100.0) 05/24/17 10:25 MCH 29.3 pg (28.0-34.0) 05/24/17 10:25 MCHC 32.8 g/dL (30.0-36.0) 05/24/17 10:25 RDW 15.3 % (11.3-14.3) H 05/24/17 10:25 Plt Count 452 K/mm3 (130-400) H 05/24/17 10:25 Neut % (Auto) 81.0 % (39.0-79.0) H 05/22/17 06:35 Lymph % (Auto) 10.9 % (16.0-50.0) L 05/22/17 06:35 [place] % (Auto) 3.6 % (0.0-11.0) 05/22/17 06:35 Eos % (Auto) 3.2 % (0.0-6.8) 05/22/17 06:35 Baso % (Auto) 0.4 (0.0-1.5) 05/22/17 06:35 Neut # (Auto) 12.6 # k/uL (1.4-7.7) H 05/22/17 06:35 Lymph # (Auto) 1.7 # k/uL (0.6-4.0) 05/22/17 06:35 [place] # (Auto) 0.6 # k/uL (0.0-0.9) 05/22/17 06:35 Eos # (Auto) 0.5 # k/uL (0.0-0.6) 05/22/17 06:35 Baso # (Auto) 0.1 # k/uL (0.0-0.5) 05/22/17 06:35 Reactive Lymphs % 0.9 % (0.0-5.0) 05/22/17 06:35 Reactive Lymphs # 0.1 # k/uL (0.0-0.8) 05/22/17 06:35 Sodium 132 mmol/L (136-145) L 05/22/17 06:35 Potassium 4.9 mmol/L (3.5-5.1) 05/22/17 06:35 Chloride 92 mmol/L (98-107) L 05/22/17 06:35 Carbon Dioxide 32 mmol/L (22-30) H 05/22/17 06:35 BUN 21 mg/dL (9-20) H 05/22/17 06:35 Creatinine 1.00 mg/dL (0.66-1.25) 05/22/17 06:35 Estimated Creat Clear 67 05/22/17 06:35 Est GFR ( Amer) > 60 (60-) 05/22/17 06:35 Est GFR (Non-Af Amer) > 60 (60-) 05/22/17 06:35 Glucose 107 mg/dL (74-106) H 05/22/17 06:35 Calcium 9.5 mg/dL (8.4-10.2) 05/22/17 06:35 Total Bilirubin < 0.1 mg/dL (0.2-1.3) L 05/22/17 06:35 AST 30 U/L (15-46) 05/22/17 06:35 ALT 55 U/L (13-69) 05/22/17 06:35 Alkaline Phosphatase 119 U/L (38-126) 05/22/17 06:35 Total Protein 7.5 g/dL (6.3-8.2) 05/22/17 06:35 Albumin 3.2 g/dL (3.5-5.0) L 05/22/17 06:35 Stool Guaiac Test Positive (NEGATIVE) H 05/22/17 08:50 Assessment/Plan - Assessment/Plan (1) DVT (deep venous thrombosis) Status: Acute Current Visit: Yes Qualifiers: DVT location: lower extremity Affected thrombotic vein of extremity: femoral Chronicity: acute Laterality: right Qualified Code(s): I82.411 - Acute embolism and thrombosis of right femoral vein Assessment: Currently on Lovenox for anticoagulation. Will likely need to go to Eliquis or other Factor Xa inhibitor retirement (2) Ischemic bowel disease Status: Acute Current Visit: Yes Assessment: S/P right hemicolectomy and ostomy placement (3) GERD without esophagitis Status: Chronic Current Visit: Yes Assessment: Continue PPI (4) Patent foramen ovale Status: Chronic Current Visit: Yes Assessment: Chronic (5) Primary cancer of lingual tonsil Status: Chronic Current Visit: No Assessment: Continue tube feeds
[2017-05-25] MEDS: ACETYLCYSTEINE 200MG/ML 30ML PEG SCH ×4 (09:43→20:31)
[2017-05-26] MEDS ORDERED: ENOXAPARIN SODIUM 80 MG/0.8 ML DISP.SYRIN SQ ONE ×2 (04:42→19:44)
[2017-05-26] MEDS: LEVOTHYROXINE SODIUM 25 MCG TABLET PEG SCH (05:37)
[2017-05-26] MEDS: PANTOPRAZOLE SODIUM 40 MG TABLET PO SCH (05:37)
[2017-05-26] MEDS: LEVOTHYROXINE SODIUM 100 MCG TABLET PEG SCH (05:37)
[2017-05-26] MEDS: FAMOTIDINE 20 MG TABLET PEG SCH (05:37)
[2017-05-26] MEDS: WATER PEG SCH ×7 (06:55→19:47)
[2017-05-26] MEDS: [UNRECOGNIZED DRUG - OTHER] PEG SCH ×7 (06:55→19:47)
[2017-05-26 07:06] LABS: MEAN CORPUSCULAR HEMOGLOBIN 29.2 pg (28.0-34.0); MEAN CORPUSCULAR VOLUME 89.9 fl (80.0-100.0)
[2017-05-26] MEDS: ALBUTEROL SULFATE 2.5 MG/3 ML AMPUL.NEB NEB SCH ×4 (09:10→21:18)
[2017-05-26] MEDS: ACETYLCYSTEINE 200MG/ML 30ML PEG SCH ×4 (09:24→19:44)
[2017-05-26] MEDS: ENOXAPARIN SODIUM 100 MG/ML DISP.SYRIN SQ SCH ×2 (09:25→19:44)
[2017-05-27] MEDS: oxyCODONE HCL 5 MG TABLET PEG PRN (01:27)
[2017-05-27] MEDS ORDERED: ENOXAPARIN SODIUM 80 MG/0.8 ML DISP.SYRIN SQ ONE ×2 (05:31→13:37)
[2017-05-27] MEDS: PANTOPRAZOLE SODIUM 40 MG TABLET PO SCH (05:59)
[2017-05-27] MEDS: FAMOTIDINE 20 MG TABLET PEG SCH (05:59)
[2017-05-27] MEDS: LEVOTHYROXINE SODIUM 100 MCG TABLET PEG SCH (05:59)
[2017-05-27] MEDS: LEVOTHYROXINE SODIUM 25 MCG TABLET PEG SCH (06:01)
[2017-05-27] MEDS: [UNRECOGNIZED DRUG - OTHER] PEG SCH ×7 (06:42→18:35)
[2017-05-27] MEDS: WATER PEG SCH ×7 (06:42→18:35)
[2017-05-27] MEDS: ACETYLCYSTEINE 200MG/ML 30ML PEG SCH ×4 (09:06→21:30)
[2017-05-27] MEDS: ENOXAPARIN SODIUM 100 MG/ML DISP.SYRIN SQ SCH (09:06)
[2017-05-27] MEDS: ALBUTEROL SULFATE 2.5 MG/3 ML AMPUL.NEB NEB SCH ×4 (10:37→21:05)
[2017-05-27] MEDS: ENOXAPARIN SODIUM 80 MG/0.8 ML DISP.SYRIN SQ SCH (20:19)
[2017-05-28] MEDS: PANTOPRAZOLE SODIUM 40 MG TABLET PO SCH (06:11)
[2017-05-28] MEDS: FAMOTIDINE 20 MG TABLET PEG SCH (06:11)
[2017-05-28] MEDS: LEVOTHYROXINE SODIUM 100 MCG TABLET PEG SCH (06:11)
[2017-05-28] MEDS: WATER PEG SCH ×7 (06:12→18:41)
[2017-05-28] MEDS: [UNRECOGNIZED DRUG - OTHER] PEG SCH ×7 (06:12→18:40)
[2017-05-28] MEDS: LEVOTHYROXINE SODIUM 25 MCG TABLET PEG SCH (06:12)
[2017-05-28] MEDS: ENOXAPARIN SODIUM 80 MG/0.8 ML DISP.SYRIN SQ SCH ×2 (07:45→20:32)
[2017-05-28] MEDS: ALBUTEROL SULFATE 2.5 MG/3 ML AMPUL.NEB NEB SCH ×4 (09:37→22:23)
[2017-05-28] MEDS: ACETYLCYSTEINE 200MG/ML 30ML PEG SCH ×4 (09:46→20:33)
[2017-05-28] MEDS: oxyCODONE HCL 5 MG TABLET PEG PRN (22:35)
[2017-05-29] MEDS: WATER PEG SCH ×7 (06:33→18:45)
[2017-05-29] MEDS: [UNRECOGNIZED DRUG - OTHER] PEG SCH ×7 (06:33→18:44)
[2017-05-29] MEDS: PANTOPRAZOLE SODIUM 40 MG TABLET PO SCH (06:33)
[2017-05-29] MEDS: FAMOTIDINE 20 MG TABLET PEG SCH (06:33)
[2017-05-29] MEDS: LEVOTHYROXINE SODIUM 25 MCG TABLET PEG SCH (06:34)
[2017-05-29] MEDS: LEVOTHYROXINE SODIUM 100 MCG TABLET PEG SCH (06:34)
[2017-05-29] MEDS: ACETYLCYSTEINE 200MG/ML 30ML PEG SCH ×4 (09:01→21:55)
[2017-05-29] MEDS: ENOXAPARIN SODIUM 80 MG/0.8 ML DISP.SYRIN SQ SCH ×2 (09:01→19:35)
[2017-05-29] MEDS: ALBUTEROL SULFATE 2.5 MG/3 ML AMPUL.NEB NEB SCH ×4 (09:25→21:55)
--- NOTE | 2017-05-29 16:26 | Diagnostic Imaging Report ---
[facility]G [facility] [address] [facility] [address] [address] Report Submission Date: May 29, 2017 4:15:16 PM CARPENTER'S HELPER Patient Study Name: KAREN NARAYANAN Date: May 29, 2017 3:51:58 PM CARPENTER'S HELPER Modality Type: CR Gender: M Description: CHEST : 45 Institution: [facility] Physician: [facility] Examination: PA and lateral chest. History: Evaluate lung ashley. Comparison exam: 21 May 2017 Findings: PA lateral chest demonstrate a prominent cardiac and mediastinal silhouette. Continued primarily biapical parenchymal infiltrates. Haziness at the left lung base. Biapical lucencies. Osseous structures have remained stable. Impression: Continued bilateral parenchymal infiltrates: not appreciably changed from prior study. Biapical lucencies may represent pneumothoraces. Consider obtaining CT chest to better evaluate. Discussed findings with nguyen nurse at 1615 hours on 29 May 2017 CDT Electronically signed on May 29, 2017 4:15:16 PM CARPENTER'S HELPER by: Cory JEREZ
[2017-05-29] MEDS ORDERED: SALINE FLUSH 10 ML DISP.SYRIN IVF ONE (20:10)
[2017-05-29] MEDS: CEFUROXIME AXETIL 250 MG TABLET PO SCH (22:53)
[2017-05-30] MEDS: FAMOTIDINE 20 MG TABLET PEG SCH (05:45)
[2017-05-30] MEDS: LEVOTHYROXINE SODIUM 100 MCG TABLET PEG SCH (05:45)
[2017-05-30] MEDS: PANTOPRAZOLE SODIUM 40 MG TABLET PO SCH (05:45)
[2017-05-30] MEDS: LEVOTHYROXINE SODIUM 25 MCG TABLET PEG SCH (05:46)
[2017-05-30] MEDS: [UNRECOGNIZED DRUG - OTHER] PEG SCH ×7 (09:29→19:56)
[2017-05-30] MEDS: WATER PEG SCH ×7 (09:29→19:56)
[2017-05-30] MEDS: ENOXAPARIN SODIUM 80 MG/0.8 ML DISP.SYRIN SQ SCH ×2 (10:00→19:57)
[2017-05-30] MEDS: CEFUROXIME AXETIL 250 MG TABLET PO SCH ×2 (10:01→19:57)
[2017-05-30] MEDS: ACETYLCYSTEINE 200MG/ML 30ML PEG SCH ×4 (10:01→19:56)
[2017-05-30] MEDS: ALBUTEROL SULFATE 2.5 MG/3 ML AMPUL.NEB NEB SCH ×4 (10:06→20:27)
[2017-05-30] MEDS: oxyCODONE HCL 5 MG TABLET PEG PRN (23:14)
[2017-05-31] MEDS: [UNRECOGNIZED DRUG - OTHER] PEG SCH ×7 (06:05→19:27)
[2017-05-31] MEDS: WATER PEG SCH ×7 (06:05→19:27)
[2017-05-31] MEDS: LEVOTHYROXINE SODIUM 100 MCG TABLET PEG SCH (06:08)
[2017-05-31] MEDS: FAMOTIDINE 20 MG TABLET PEG SCH (06:08)
[2017-05-31] MEDS: PANTOPRAZOLE SODIUM 40 MG TABLET PO SCH (06:08)
[2017-05-31] MEDS: LEVOTHYROXINE SODIUM 25 MCG TABLET PEG SCH (06:11)
[2017-05-31] MEDS: ENOXAPARIN SODIUM 80 MG/0.8 ML DISP.SYRIN SQ SCH ×2 (08:09→20:15)
[2017-05-31] MEDS: ACETYLCYSTEINE 200MG/ML 30ML PEG SCH ×4 (08:10→20:15)
[2017-05-31] MEDS: CEFUROXIME AXETIL 250 MG TABLET PO SCH ×2 (08:10→20:15)
[2017-05-31] MEDS: ALBUTEROL SULFATE 2.5 MG/3 ML AMPUL.NEB NEB SCH ×4 (08:39→20:16)
[2017-05-31] MEDS: oxyCODONE HCL 5 MG TABLET PEG PRN (20:43)
[2017-06-01] MEDS: FAMOTIDINE 20 MG TABLET PEG SCH (06:10)
[2017-06-01] MEDS: LEVOTHYROXINE SODIUM 100 MCG TABLET PEG SCH (06:10)
[2017-06-01] MEDS: PANTOPRAZOLE SODIUM 40 MG TABLET PO SCH (06:10)
[2017-06-01] MEDS: WATER PEG SCH ×7 (08:32→19:09)
[2017-06-01] MEDS: [UNRECOGNIZED DRUG - OTHER] PEG SCH ×6 (08:32→19:09)
[2017-06-01] MEDS: ENOXAPARIN SODIUM 80 MG/0.8 ML DISP.SYRIN SQ SCH ×2 (08:48→20:28)
[2017-06-01] MEDS: ACETYLCYSTEINE 200MG/ML 30ML PEG SCH ×4 (08:49→21:35)
[2017-06-01] MEDS: ALBUTEROL SULFATE 2.5 MG/3 ML AMPUL.NEB NEB SCH ×4 (09:10→21:28)
[2017-06-01] MEDS: CEFUROXIME AXETIL 250 MG TABLET PO SCH ×2 (11:27→20:29)
[2017-06-01] MEDS ORDERED: oxyCODONE HCL 5 MG TABLET ONE (18:06)
[2017-06-01] MEDS: oxyCODONE HCL 5 MG TABLET PEG PRN (18:37)
[2017-06-01] MEDS ORDERED: oxyCODONE HCL 5 MG TABLET PEG SCH (21:00)
[2017-06-02] MEDS: WATER PEG SCH ×7 (06:23→18:27)
[2017-06-02] MEDS: PANTOPRAZOLE SODIUM 40 MG TABLET PO SCH (06:23)
[2017-06-02] MEDS: LEVOTHYROXINE SODIUM 25 MCG TABLET PEG SCH (06:23)
[2017-06-02] MEDS: LEVOTHYROXINE SODIUM 100 MCG TABLET PEG SCH (06:23)
[2017-06-02] MEDS: FAMOTIDINE 20 MG TABLET PEG SCH (06:23)
[2017-06-02] MEDS: [UNRECOGNIZED DRUG - OTHER] PEG SCH ×7 (06:36→18:27)
[2017-06-02 07:27] LABS: MEAN CORPUSCULAR HEMOGLOBIN 30.2 pg (28.0-34.0); MEAN CORPUSCULAR VOLUME 90.8 fl (80.0-100.0)
[2017-06-02] MEDS: oxyCODONE HCL 5 MG TABLET PEG PRN ×2 (08:19→12:37)
[2017-06-02] MEDS: ACETYLCYSTEINE 200MG/ML 30ML PEG SCH ×4 (08:20→20:31)
[2017-06-02] MEDS: CEFUROXIME AXETIL 250 MG TABLET PO SCH ×2 (08:22→20:30)
[2017-06-02] MEDS: ENOXAPARIN SODIUM 80 MG/0.8 ML DISP.SYRIN SQ SCH (08:22)
--- NOTE | 2017-06-02 08:50 | Inpatient Progress Note ---
Subjective - Required Recertification Statement I anticipate X number of days because-include discharge plan: 7 - Review of Systems Events since last encounter: Wiley is more and more fatigued. He says that he hurts from his waist up when he is walking, and nursing state that he has had some problems with leg weakness. His hemoglobin has continued to go up, however his white count is slightly up. I have switched him from Lovenox SQ to PO Eliquis now as recommended by the team at . He is still very short of breath. General: Fatigue. Denies: Chills HEENT: Denies: Head Aches Pulmonary: Dyspnea, Cough Cardiovascular: Denies: Chest Pain, Palpitations, Orthopnea Gastrointestinal: Denies: Nausea, Vomiting Genitourinary: Denies: Dysuria Musculoskeletal: Back Pain. Denies: Neck Pain Neurological: Weakness. Denies: Change in Speech, Confusion Objective - Exam Vitals and I&O: Vital Signs Temp 98.7 F 06/01/17 20:49 Pulse 82 06/01/17 21:00 Resp 18 06/01/17 21:00 BP 121/78 06/01/17 20:49 Pulse Ox 97 06/01/17 20:49 Intake & Output 06/01/17 06/01/17 06/02/17 11:59 23:59 11:59 Intake Total 741 697 Balance 741 697 Intake: Tube Feeding 711 697 Other 30 Other: Voiding Method Urinal Urinal # Voids 3 2 # Bowel Movements 0 General: Alert, Oriented to Person, Oriented to Place, Mild distress HEENT: Atraumatic, PERRLA, EOMI, Other (mucous membranes are very dry) Neck: Supple, No JVD Lungs: Wheezes, Rhonchi, Decreased Air Movement Cardiovascular: Regular rate Abdomen: Normal bowel sounds, Soft, Vental Hernia (Ostomy is functioning well) Skin: Normal, [place] Neurological: Normal speech - Results Results: Laboratory Results WBC 12.30 K/ul (4.00-12.00) H 06/02/17 06:45 RBC 3.48 M/ul (3.90-5.20) L 06/02/17 06:45 Hgb 10.5 g/dL (12.0-18.0) L 06/02/17 06:45 Hct 31.6 % (37.0-53.0) L 06/02/17 06:45 MCV 90.8 fl (80.0-100.0) 06/02/17 06:45 MCH 30.2 pg (28.0-34.0) 06/02/17 06:45 MCHC 33.3 g/dL (30.0-36.0) 06/02/17 06:45 RDW 17.2 % (11.3-14.3) H 06/02/17 06:45 Plt Count 503 K/mm3 (130-400) H 06/02/17 06:45 Neut % (Auto) 81.0 % (39.0-79.0) H 05/22/17 06:35 Lymph % (Auto) 10.9 % (16.0-50.0) L 05/22/17 06:35 [place] % (Auto) 3.6 % (0.0-11.0) 05/22/17 06:35 Eos % (Auto) 3.2 % (0.0-6.8) 05/22/17 06:35 Baso % (Auto) 0.4 (0.0-1.5) 05/22/17 06:35 Neut # (Auto) 12.6 # k/uL (1.4-7.7) H 05/22/17 06:35 Lymph # (Auto) 1.7 # k/uL (0.6-4.0) 05/22/17 06:35 [place] # (Auto) 0.6 # k/uL (0.0-0.9) 05/22/17 06:35 Eos # (Auto) 0.5 # k/uL (0.0-0.6) 05/22/17 06:35 Baso # (Auto) 0.1 # k/uL (0.0-0.5) 05/22/17 06:35 Reactive Lymphs % 0.9 % (0.0-5.0) 05/22/17 06:35 Reactive Lymphs # 0.1 # k/uL (0.0-0.8) 05/22/17 06:35 Sodium 132 mmol/L (136-145) L 05/22/17 06:35 Potassium 4.9 mmol/L (3.5-5.1) 05/22/17 06:35 Chloride 92 mmol/L (98-107) L 05/22/17 06:35 Carbon Dioxide 32 mmol/L (22-30) H 05/22/17 06:35 BUN 21 mg/dL (9-20) H 05/22/17 06:35 Creatinine 1.00 mg/dL (0.66-1.25) 05/22/17 06:35 Estimated Creat Clear 67 05/22/17 06:35 Est GFR ( Amer) > 60 (60-) 05/22/17 06:35 Est GFR (Non-Af Amer) > 60 (60-) 05/22/17 06:35 Glucose 107 mg/dL (74-106) H 05/22/17 06:35 Calcium 9.5 mg/dL (8.4-10.2) 05/22/17 06:35 Total Bilirubin < 0.1 mg/dL (0.2-1.3) L 05/22/17 06:35 AST 30 U/L (15-46) 05/22/17 06:35 ALT 55 U/L (13-69) 05/22/17 06:35 Alkaline Phosphatase 119 U/L (38-126) 05/22/17 06:35 Total Protein 7.5 g/dL (6.3-8.2) 05/22/17 06:35 Albumin 3.2 g/dL (3.5-5.0) L 05/22/17 06:35 Stool Guaiac Test Positive (NEGATIVE) H 05/22/17 08:50 Assessment/Plan - Assessment/Plan (1) DVT (deep venous thrombosis) Status: Acute Current Visit: Yes Qualifiers: DVT location: lower extremity Affected thrombotic vein of extremity: femoral Chronicity: acute Laterality: right Qualified Code(s): I82.411 - Acute embolism and thrombosis of right femoral vein Assessment: Change from Lovenox to PO Eliquis (2) Ischemic bowel disease Status: Acute Current Visit: Yes Assessment: Due to embolic disease (3) GERD without esophagitis Status: Chronic Current Visit: Yes Assessment: Continue pantoprazole (4) Patent foramen ovale Status: Chronic Current Visit: Yes Assessment: Chronic and thought to be the route of embolization causing ischemic bowel disease (5) Primary cancer of lingual tonsil Status: Chronic Current Visit: No (6) Anemia Status: Acute Current Visit: Yes Qualifiers: Anemia type: unspecified type Qualified Code(s): D64.9 - Anemia, unspecified Assessment: Continue to follow hemoglobin (7) Pneumonia Status: Acute Current Visit: No Qualifiers: Pneumonia type: due to unspecified organism Laterality: left Lung location: lower lobe of lung Qualified Code(s): J18.1 - Lobar pneumonia, unspecified organism Assessment: Continue Rocephin and azithromycin
[2017-06-02] MEDS: ALBUTEROL SULFATE 2.5 MG/3 ML AMPUL.NEB NEB SCH ×4 (09:20→20:51)
[2017-06-02] MEDS: APIXABAN 2.5 MG TABLET PO SCH ×2 (12:37→20:30)
[2017-06-03] MEDS: LEVOTHYROXINE SODIUM 100 MCG TABLET PEG SCH (06:12)
[2017-06-03] MEDS: PANTOPRAZOLE SODIUM 40 MG TABLET PO SCH (06:12)
[2017-06-03] MEDS: LEVOTHYROXINE SODIUM 25 MCG TABLET PEG SCH (06:12)
[2017-06-03] MEDS: FAMOTIDINE 20 MG TABLET PEG SCH (06:12)
[2017-06-03] MEDS: WATER PEG SCH ×8 (06:14→18:23)
[2017-06-03] MEDS: [UNRECOGNIZED DRUG - OTHER] PEG SCH ×7 (06:14→17:34)
[2017-06-03] MEDS: APIXABAN 2.5 MG TABLET PO SCH ×2 (08:22→20:36)
[2017-06-03] MEDS: CEFUROXIME AXETIL 250 MG TABLET PO SCH ×2 (08:23→20:37)
[2017-06-03] MEDS: oxyCODONE HCL 5 MG TABLET PEG PRN ×2 (08:23→12:27)
[2017-06-03] MEDS: ALBUTEROL SULFATE 2.5 MG/3 ML AMPUL.NEB NEB SCH ×4 (09:15→22:08)
[2017-06-03] MEDS: ACETYLCYSTEINE 200MG/ML 30ML PEG SCH ×4 (10:27→20:37)
[2017-06-03] MEDS ORDERED: ENOXAPARIN SODIUM 80 MG/0.8 ML DISP.SYRIN SQ ONE (16:06)
[2017-06-03] MEDS ORDERED: Non-Formulary 1 EACH PEG SCH (19:00)
[2017-06-03] MEDS: Non-Formulary 1 EACH PEG SCH ×2 (19:36→20:36)
[2017-06-04] MEDS: LEVOTHYROXINE SODIUM 25 MCG TABLET PEG SCH (06:04)
[2017-06-04] MEDS: LEVOTHYROXINE SODIUM 100 MCG TABLET PEG SCH ×2 (06:05→06:06)
[2017-06-04] MEDS: FAMOTIDINE 20 MG TABLET PEG SCH (06:06)
[2017-06-04] MEDS: PANTOPRAZOLE SODIUM 40 MG TABLET PO SCH (06:06)
[2017-06-04] MEDS: WATER PEG SCH ×7 (06:08→18:27)
[2017-06-04] MEDS: ACETYLCYSTEINE 200MG/ML 30ML PEG SCH ×4 (08:06→20:05)
[2017-06-04] MEDS: oxyCODONE HCL 5 MG TABLET PEG PRN ×2 (08:06→20:03)
[2017-06-04] MEDS: CEFUROXIME AXETIL 250 MG TABLET PO SCH ×2 (08:06→20:04)
[2017-06-04] MEDS: APIXABAN 2.5 MG TABLET PO SCH ×2 (08:06→20:04)
[2017-06-04] MEDS: ALBUTEROL SULFATE 2.5 MG/3 ML AMPUL.NEB NEB SCH ×4 (09:30→20:11)
[2017-06-04] MEDS: Non-Formulary 1 EACH PEG SCH ×4 (14:59→20:05)
[2017-06-05] MEDS: LEVOTHYROXINE SODIUM 100 MCG TABLET PEG SCH ×2 (06:09→06:19)
[2017-06-05] MEDS: FAMOTIDINE 20 MG TABLET PEG SCH (06:19)
[2017-06-05] MEDS: PANTOPRAZOLE SODIUM 40 MG TABLET PO SCH (06:19)
[2017-06-05] MEDS: WATER PEG SCH ×7 (06:19→21:07)
[2017-06-05] MEDS: LEVOTHYROXINE SODIUM 25 MCG TABLET PEG SCH ×2 (06:19→11:49)
[2017-06-05] MEDS: APIXABAN 2.5 MG TABLET PO SCH ×2 (08:19→21:07)
[2017-06-05] MEDS: CEFUROXIME AXETIL 250 MG TABLET PO SCH ×2 (08:21→21:07)
[2017-06-05] MEDS: ALBUTEROL SULFATE 2.5 MG/3 ML AMPUL.NEB NEB SCH ×4 (10:37→21:08)
[2017-06-05] MEDS: ACETYLCYSTEINE 200MG/ML 30ML PEG SCH ×4 (10:38→21:08)
[2017-06-05] MEDS ORDERED: Non-Formulary 1 EACH PEG SCH (11:00)
[2017-06-05] MEDS: Non-Formulary 1 EACH PEG SCH ×5 (12:37→21:06)
[2017-06-05] MEDS: oxyCODONE HCL 5 MG TABLET PEG PRN (15:53)
--- NOTE | 2017-06-05 19:43 | Diagnostic Imaging Report ---
TERRI MOREIRA [facility] [address] [facility] [address] [address] Report Submission Date: Jun 05, 2017 7:26:56 PM [employer]YST PLANT SUPERVISOR Patient Study Name: KAREN NARAYANAN Date: Jun 05, 2017 6:58:32 PM [employer] SUPERVISOR Modality Type: CR Gender: M Description: SPINE : 45 Institution: [facility] Physician: TERRI MOREIRA Lumbar spine 3 views Clinical history pain Technique AP lateral and coned down the lumbosacral junction Findings: There is disc space narrowing at L5/S1. Dextroscoliosis is present. Spurs arise aunt early from L3 through L5. Inferior vena cava filter is noted. L5/S1 and L4/L5 facet joint degenerative arthritis is present. Impression: Lumbar spondylosis. No acute lumbar spine pathology Inferior vena cava filter in place Electronically signed on Jun 05, 2017 7:26:56 PM CAT[employer] PLANT SUPERVISOR by: Say JEREZ
[2017-06-06] MEDS: oxyCODONE HCL 5 MG TABLET PEG PRN ×4 (00:10→21:43)
[2017-06-06] MEDS: FAMOTIDINE 20 MG TABLET PEG SCH (06:50)
[2017-06-06] MEDS: WATER PEG SCH ×7 (06:50→19:08)
[2017-06-06] MEDS: PANTOPRAZOLE SODIUM 40 MG TABLET PO SCH (06:50)
[2017-06-06] MEDS: Non-Formulary 1 EACH PEG SCH ×8 (06:50→21:44)
[2017-06-06] MEDS: LEVOTHYROXINE SODIUM 100 MCG TABLET PEG SCH (06:51)
[2017-06-06] MEDS: LEVOTHYROXINE SODIUM 25 MCG TABLET PEG SCH (06:51)
[2017-06-06] MEDS: CEFUROXIME AXETIL 250 MG TABLET PO SCH ×2 (08:35→21:46)
[2017-06-06] MEDS: APIXABAN 2.5 MG TABLET PO SCH ×2 (08:35→21:46)
[2017-06-06] MEDS: ACETYLCYSTEINE 200MG/ML 30ML PEG SCH ×4 (08:37→21:46)
[2017-06-06] MEDS: ALBUTEROL SULFATE 2.5 MG/3 ML AMPUL.NEB NEB SCH ×4 (10:14→21:39)
[2017-06-07] MEDS: LEVOTHYROXINE SODIUM 25 MCG TABLET PEG SCH (06:22)
[2017-06-07] MEDS: LEVOTHYROXINE SODIUM 100 MCG TABLET PEG SCH (06:22)
[2017-06-07] MEDS: PANTOPRAZOLE SODIUM 40 MG TABLET PO SCH (06:23)
[2017-06-07] MEDS: Non-Formulary 1 EACH PEG SCH ×6 (06:23→23:20)
[2017-06-07] MEDS: WATER PEG SCH ×6 (06:23→23:16)
[2017-06-07] MEDS: FAMOTIDINE 20 MG TABLET PEG SCH (06:23)
[2017-06-07] MEDS: oxyCODONE HCL 5 MG TABLET PEG PRN ×3 (06:25→21:36)
[2017-06-07] MEDS: CEFUROXIME AXETIL 250 MG TABLET PO SCH ×2 (09:58→21:36)
[2017-06-07] MEDS: APIXABAN 2.5 MG TABLET PO SCH ×2 (09:59→21:34)
[2017-06-07] MEDS: ACETYLCYSTEINE 200MG/ML 30ML PEG SCH ×4 (13:14→23:14)
[2017-06-07] MEDS: ALBUTEROL SULFATE 2.5 MG/3 ML AMPUL.NEB NEB SCH ×3 (17:35→22:45)
[2017-06-08] MEDS: LEVOTHYROXINE SODIUM 25 MCG TABLET PEG SCH (06:06)
[2017-06-08] MEDS: LEVOTHYROXINE SODIUM 100 MCG TABLET PEG SCH (06:07)
[2017-06-08] MEDS: FAMOTIDINE 20 MG TABLET PEG SCH (06:07)
[2017-06-08] MEDS: PANTOPRAZOLE SODIUM 40 MG TABLET PO SCH (06:07)
[2017-06-08] MEDS: WATER PEG SCH ×7 (06:07→18:10)
[2017-06-08] MEDS: Non-Formulary 1 EACH PEG SCH ×8 (06:07→21:00)
[2017-06-08] MEDS: oxyCODONE HCL 5 MG TABLET PEG PRN ×3 (06:08→20:30)
[2017-06-08] MEDS: APIXABAN 2.5 MG TABLET PO SCH ×3 (09:15→20:31)
[2017-06-08] MEDS: CEFUROXIME AXETIL 250 MG TABLET PO SCH ×2 (09:15→20:32)
[2017-06-08] MEDS: ACETYLCYSTEINE 200MG/ML 30ML PEG SCH ×4 (09:15→20:32)
[2017-06-08] MEDS: ALBUTEROL SULFATE 2.5 MG/3 ML AMPUL.NEB NEB SCH ×4 (09:35→21:15)
--- NOTE | 2017-06-08 09:51 | Inpatient Progress Note ---
Subjective - Required Recertification Statement I anticipate X number of days because-include discharge plan: 7 days - Review of Systems Events since last encounter: Patient everything develops some increase in aspiration problem. Patient stated he seems like after he is given himselffeedings he is coughing up approximately 1/3 to 1/2 of the feedings. Patient has been having some increasing short of breath and dyspnea. Patient denied any sitka or chills. Patient is continuing to participate in physical and occupational therapy. Patient stated he does seem to be helping and he does feel like it's getting some stronger . Objective - Exam Vitals and I&O: Vital Signs Temp 98.7 F 06/07/17 21:00 Pulse 72 06/07/17 21:00 Resp 16 06/07/17 21:00 BP 129/75 06/07/17 21:00 Pulse Ox 93 06/07/17 21:00 Intake & Output 06/07/17 06/07/17 06/08/17 11:59 23:59 11:59 Intake Total 240 1080 630 Balance 240 1080 630 Intake: Oral 240 Tube Feeding 1080 630 Other: Voiding Method Toilet Toilet # Voids 600 General: Alert, Oriented to Person, Oriented to Place, Oriented to Time, Cooperative, Mild distress Lungs: Normal air movement, Speaks full Sentences, Rhonchi (course rhonchi bilat ) Cardiovascular: Regular rate, Normal S1, Normal S2 Abdomen: Normal bowel sounds, Soft, No tenderness, No hepatospenomegaly, Other ( g tube site clean) Extremities: No clubbing, No cyanosis, No edema Skin: Normal, [place] Psych/Mental Status: Mental status NL, Mood NL - Results Results: Laboratory Results WBC 12.30 K/ul (4.00-12.00) H 06/02/17 06:45 RBC 3.48 M/ul (3.90-5.20) L 06/02/17 06:45 Hgb 10.5 g/dL (12.0-18.0) L 06/02/17 06:45 Hct 31.6 % (37.0-53.0) L 06/02/17 06:45 MCV 90.8 fl (80.0-100.0) 06/02/17 06:45 MCH 30.2 pg (28.0-34.0) 06/02/17 06:45 MCHC 33.3 g/dL (30.0-36.0) 06/02/17 06:45 RDW 17.2 % (11.3-14.3) H 06/02/17 06:45 Plt Count 503 K/mm3 (130-400) H 06/02/17 06:45 Neut % (Auto) 81.0 % (39.0-79.0) H 05/22/17 06:35 Lymph % (Auto) 10.9 % (16.0-50.0) L 05/22/17 06:35 [place] % (Auto) 3.6 % (0.0-11.0) 05/22/17 06:35 Eos % (Auto) 3.2 % (0.0-6.8) 05/22/17 06:35 Baso % (Auto) 0.4 (0.0-1.5) 05/22/17 06:35 Neut # (Auto) 12.6 # k/uL (1.4-7.7) H 05/22/17 06:35 Lymph # (Auto) 1.7 # k/uL (0.6-4.0) 05/22/17 06:35 [place] # (Auto) 0.6 # k/uL (0.0-0.9) 05/22/17 06:35 Eos # (Auto) 0.5 # k/uL (0.0-0.6) 05/22/17 06:35 Baso # (Auto) 0.1 # k/uL (0.0-0.5) 05/22/17 06:35 Reactive Lymphs % 0.9 % (0.0-5.0) 05/22/17 06:35 Reactive Lymphs # 0.1 # k/uL (0.0-0.8) 05/22/17 06:35 Sodium 132 mmol/L (136-145) L 05/22/17 06:35 Potassium 4.9 mmol/L (3.5-5.1) 05/22/17 06:35 Chloride 92 mmol/L (98-107) L 05/22/17 06:35 Carbon Dioxide 32 mmol/L (22-30) H 05/22/17 06:35 BUN 21 mg/dL (9-20) H 05/22/17 06:35 Creatinine 1.00 mg/dL (0.66-1.25) 05/22/17 06:35 Estimated Creat Clear 67 05/22/17 06:35 Est GFR ( Amer) > 60 (60-) 05/22/17 06:35 Est GFR (Non-Af Amer) > 60 (60-) 05/22/17 06:35 Glucose 107 mg/dL (74-106) H 05/22/17 06:35 Calcium 9.5 mg/dL (8.4-10.2) 05/22/17 06:35 Total Bilirubin < 0.1 mg/dL (0.2-1.3) L 05/22/17 06:35 AST 30 U/L (15-46) 05/22/17 06:35 ALT 55 U/L (13-69) 05/22/17 06:35 Alkaline Phosphatase 119 U/L (38-126) 05/22/17 06:35 Total Protein 7.5 g/dL (6.3-8.2) 05/22/17 06:35 Albumin 3.2 g/dL (3.5-5.0) L 05/22/17 06:35 Stool Guaiac Test Positive (NEGATIVE) H 05/22/17 08:50 Assessment/Plan - Assessment/Plan (1) DVT (deep venous thrombosis) Status: Acute Qualifiers: DVT location: lower extremity Affected thrombotic vein of extremity: femoral Chronicity: acute Laterality: right Qualified Code(s): I82.411 - Acute embolism and thrombosis of right femoral vein Assessment: stable (2) Hypothyroid Status: Chronic Comment: continue home med (3) Recurrent aspiration pneumonia Status: Acute Assessment: Patient seems to be having some increasing problems with this.We have tried even less feedings at a time and more frequent but he continues to have some what appeared to be reflux and aspiration. (4) Primary cancer of lingual tonsil Status: Chronic Assessment: stABLE
[2017-06-08 10:29] LABS: MEAN CORPUSCULAR HEMOGLOBIN 29.5 pg (28.0-34.0); MEAN CORPUSCULAR VOLUME 90.7 fl (80.0-100.0)
[2017-06-08 10:50] LABS: EOSINOPHILS % 3 % (0-7); MONOCYTES % 9 % (0-11); SEGMENTED NEUTROPHILS % 64 % (39-79)
[2017-06-08] MEDS: CEFDINIR 300 MG CAPSULE PO SCH (20:32)
[2017-06-09] MEDS: oxyCODONE HCL 5 MG TABLET PEG PRN ×2 (01:25→08:10)
[2017-06-09] MEDS: LEVOTHYROXINE SODIUM 25 MCG TABLET PEG SCH (06:36)
[2017-06-09] MEDS: LEVOTHYROXINE SODIUM 100 MCG TABLET PEG SCH (06:36)
[2017-06-09] MEDS: PANTOPRAZOLE SODIUM 40 MG TABLET PO SCH (06:37)
[2017-06-09] MEDS: Non-Formulary 1 EACH PEG SCH ×5 (06:37→15:51)
[2017-06-09] MEDS: FAMOTIDINE 20 MG TABLET PEG SCH (06:37)
[2017-06-09] MEDS: WATER PEG SCH ×5 (06:38→15:51)
[2017-06-09] MEDS: CEFDINIR 300 MG CAPSULE PO SCH (08:06)
[2017-06-09] MEDS: ACETYLCYSTEINE 200MG/ML 30ML PEG SCH ×2 (08:07→12:37)
[2017-06-09] MEDS: APIXABAN 2.5 MG TABLET PO SCH (08:07)
[2017-06-09] MEDS: ALBUTEROL SULFATE 2.5 MG/3 ML AMPUL.NEB NEB SCH ×2 (09:18→13:09)
[2017-06-09 10:54] VITALS: BP 96/58
[2017-06-09 11:56] LABS: MEAN CORPUSCULAR HEMOGLOBIN 28.8 pg (28.0-34.0)
[2017-06-09 12:31] LABS: EOSINOPHILS % 2 % (0-7); MONOCYTES % 9 % (0-11); SEGMENTED NEUTROPHILS % 80 % (39-79)
--- NOTE | 2017-06-09 13:30 | Diagnostic Imaging Report ---
[facility] [address] [facility] [address] [address] Report Submission Date: Jun 09, 2017 1:10:11 PM INTERNET WEBMASTER Patient Study Name: KAREN NARAYANAN Date: Jun 09, 2017 12:39:10 PM INTERNET WEBMASTER Modality Type: CR Gender: M Description: CHEST : 45 Institution: Physician: [facility]/MED SURG Examination: Portable chest History: Difficulty breathing. Comparison exam: 29 May 2017 Findings: Single view of the chest demonstrates a prominent cardiac silhouette. Tortuous aorta. Continued diffuse parenchymal infiltrates. Increased lucencies involving the apices bilaterally. Impression: Increased pneumothoraces. Continued diffuse parenchymal interstitial infiltrates and likely effusions. Discussed findings with Nurse Johnson at 1307 hours on 09 June 2017 CDT Electronically signed on Jun 09, 2017 1:10:11 PM INTERNET WEBMASTER by: Cory JEREZ
[2017-06-09] MEDS ORDERED: KETOROLAC TROMETHAMINE 60 MG/2 ML VIAL IM ONE (14:17)
[2017-06-09] MEDS ORDERED: KETOROLAC TROMETHAMINE 30 MG/1ML VIAL ONE (14:25)
[2017-06-09] MEDS ORDERED: SALINE FLUSH 10 ML DISP.SYRIN IVF ONE (14:27)
--- NOTE | 2017-06-14 20:35 | Discharge Summary ---
Discharge Summary - Discharge Sumary History of Present Illness: 71yo white male who was admitted to [facility] for sepsis with shock After he developed some severe abdominal pain. 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 Two days after his primary surgery patient underwent another abdominal laparotomy for partial closure of his abdominal wound/incision. Patient was also found to have some hypernatremia, hypokalemia and hypercloremia. Patient was also found to have a pneumonia. This was felt to be related to recurrent aspiration problems that the patient has. Patient sputum culture did grow out pseudomonas. Patient was initially placed on vancomycin and then subsequently on Levaquin.Patient was treated with vancomycin. Patient has two more days to finish out his course of antibiotic therapy. Patient was found to have a DVT in the femoral vein, with no PE. Patient was found to have a patent foramen ovale. There is some question if the patient had a emboli that travel through the defect and cause the ischemic mesenteric bowel through embolization. IVC filter placed. Patient has been placed on anticoagulation therapy of Lovenox. Patient denies it is had any previous DVTs. Patient stated he does seem to be doing fairly well at this time. Patient believes that is breathing has return back to normal. Patient does have a well-functioning ileostomy. Patient pain related to his abdominal surgery does seem to be improving at this time. 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 Patient does have a PEG tube in place and get all this medications and nutritional and hydration through it. Condition at Discharge: Guarded Home Medications: Ambulatory Orders Medication Instructions Recorded Omeprazole [Prilosec] 40 mg PO D 06/20/16 Consultations this Visit: None Procedures this Visit: None Allergies/Adverse Reactions: Allergies Allergy/AdvReac Type Severity Reaction Status Date / Time iodine Allergy Verified 06/20/16 19:30 Discharge Summary: Patient was admitted for physical and occupational therapy with the hopes of returning back home. Patient did participate well with physical and occupational therapy and did progress with his ability to ambulate and transfer. Due to his counselor cancer patient had a G-tube in place for feedings. Patient with giving himself eating to and flush it through the G- tube. We did have some difficulty during the hospitalization with the tube clogging but at the time of discharge it was functioning well. Patient appeared to be having some reflect/aspiration associated with his beating. At the time to discharge patient appeared to be refluxing about 1/3 to 1/2 of his feedings. Patient with developing some increasing respiratory distress. Also during his day patient was noted to have bilateral apical pneumothorax. A chest x-ray on the day of transfer showed increasing bilateral pneumothorax. Patient chronic interstitial changes remain stable. Patient WBC count however did increase up to 14,000. Patient that is running a low-grade fever. Patient did become hyponatremia with a sodium of 122. Patient appeared to be getting dehydrated creatinine had increased up to 1.7. Patient was started on IV fluids of normal saline. Due to his multiple medical problems and increasing pneumothorax. Diggs that the patient needed to be readmitted to acute care. Patient was transferred to [facility] for further care and evaluation. 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
== END 2017-06-09 15:30 | disposition short-term general hospital (02) | DRG 391 ==
LOC: SOUTH 12:55
PROVIDERS: ADMIT Family Medicine; ATTEND Family Medicine
DX: K21.9 Gastro-esophageal reflux disease without esophagitis (principal); J69.0 Pneumonitis due to inhalation of food and vomit; I82.411 Acute embolism and thrombosis of right femoral vein; J93.9 Pneumothorax, unspecified; K63.89 Other specified diseases of intestine; E03.9 Hypothyroidism, unspecified; C02.4 Malignant neoplasm of lingual tonsil
CPT/HCPCS: 36415; 71020; 72100; 80053; 82270; 85025; 85027; 94640; 94760; 97110; 97112; 97116; 97161; 97166; 97530; 97535; J0132; J1650; J1885; J7030; S1016

== ENCOUNTER 2017-05-29 20:35 | Outpatient (CLI) | payer MEDICARE, OTHER ==
[2017-05-29 18:25] VITALS: BP 122/74
== END 2017-05-29 20:50 ==
LOC: RAD 20:35
PROVIDERS: ATTEND Family Medicine
DX: R05 Cough (principal)
CPT/HCPCS: 71270; Q9967